=== PATIENT | male | born 1965 | race Caucasian/White ===

== ENCOUNTER 2019-06-09 20:05 | Inpatient (IN) ==
[2019-06-09] MEDS ORDERED: ATIVAN IV ONE ×3 (20:09→21:02)
[2019-06-09] MEDS ORDERED: ATIVAN ONE (20:15)
[2019-06-09] MEDS ORDERED: KEPPRA 1,500 MG in NS 100 ML IV ONE (20:26)
--- NOTE | 2019-06-09 20:35 | Diag Imaging Result Doc PS360 ---
EXAM: CT HEAD W/O CONTRAST INDICATION: seizure TECHNIQUE: This exam was performed using automated exposure control, adjustment of mA or kV according to patient size, and/or use of iterative reconstruction technique. COMPARISON: 11/13/2014 FINDINGS: There is stable ventriculomegaly, more prominent on the left. There is no evidence of periventricular subependymal edema to indicate acute hydrocephalus. There is no definite acute infarct given the limited sensitivity of CT versus MRI. There is no discrete intracranial mass, mass effect, or intracranial hemorrhage. There is a small right maxillary sinus mucus retention cyst. Surrounding soft tissues and bony structures are essentially unremarkable, otherwise. IMPRESSION: Stable chronic ventriculomegaly. No evidence of acute intracranial pathology by CT. Electronically signed by Gautam Souza 06/09/2019 8:32 PM
--- NOTE | 2019-06-09 20:36 | Diag Imaging Result Doc PS360 ---
EXAM: CHEST-PORTABLE INDICATION: sz TECHNIQUE: One view COMPARISON: 05/11/2012 FINDINGS: Inspiration is suboptimal. There are linear opacities at the mid and lower lung zones bilaterally suggesting atelectasis. Superimposed mild interstitial edema is also possible. There is no discrete pleural fluid collection or pneumothorax. The cardiomediastinal silhouette and central vasculature are grossly unremarkable. IMPRESSION: Low lung volumes with bilateral subsegmental atelectasis and possible superimposed mild interstitial edema. Electronically signed by Gautam Souza 06/09/2019 8:34 PM
[2019-06-09] MEDS ORDERED: NS 1,000 ML IV ONE (20:48)
[2019-06-09] MEDS ORDERED: DEPACON 500 MG in NS 50 ML IV ONE (21:02)
[2019-06-09] MEDS ORDERED: LASIX IV ONE (21:29)
[2019-06-09 21:52] LABS: ALLEN TEST YES; BLOOD TYPE ARTERIAL; HCO3-(ACT) 26.4 mmoll (20.0-26.0); METHB 1.1 % (0.0-1.5); O2(CT) 17.6 mL/dL (15.0-23.0); O2HB 93.1 % (95.0-99.0); PO2(98.6) 75 mmHg (60-100); SAMPLE BLOOD; SAO2 95.5 % (95.0-100.0); THB 13.4 g/dL (11.5-17.4)
[2019-06-09 21:56] LABS: MODALITY NRB
[2019-06-09 21:57] LABS: PCO2(98.6) 61 mmHg (35-45)
[2019-06-09] MEDS ORDERED: DUONEB (A & A) INH ONE (22:03)
[2019-06-09 23:24] LABS: URINE SOURCE CATH
[2019-06-09 23:26] LABS: BILIRUBIN URINE NEGATIVE (NEGATIVE); BLOOD URINE NEGATIVE (NEGATIVE); COLOR YELLOW; GLUCOSE URINE NEGATIVE (NEGATIVE); KETONE URINE 10 mg/dL (NEGATIVE); LEUKOCYTES URINE NEGATIVE (NEGATIVE); NITRITE URINE NEGATIVE (NEGATIVE); PH URINE 5.5; PROTEIN URINE 30 mg/dL (NEGATIVE); SP GRAVITY URINE 1.031; TURBIDITY URINE CLEAR (CLEAR); UROBILINOGEN URINE NORMAL (NORMAL)
[2019-06-09 23:27] LABS: UR EPITHELIAL CELLS <10 /HPF (<10); URINE BACTERIA NEGATIVE /HPF; URINE RBC <10 /HPF (<10); URINE WBC <10 /HPF (<10)
[2019-06-09 23:34] LABS: BASO# 0.03 X1000 (0.0-0.2); BASO% 0.3 % (0.0-0.8); EOS# 0.23 X1000 (0.0-0.7); EOS% 2.2 % (0.0-10.0); HEMATOCRIT 45.5 % (42.0-52.0); HEMOGLOBIN 14.4 g/dL (14.0-18.0); IMM GRAN# 0.02 X1000 (0.0-0.04); IMM GRAN% 0.2 % (0.0-0.5); LYMPH# 5.23 X1000 (1.2-3.4); LYMPH% 49.2 % (20.5-51.1); MCH 28.3 PG (27-31); MCHC 31.6 g/dL (33-37); MCV 89.4 FL (81-99); MONO# 0.94 X1000 (0.11-0.59); MONO% 8.9 % (1.7-9.3); MPV 11.1 FL (7.4-10.4); NEUT# 4.17 X1000 (1.4-6.5); NEUT% 39.2 % (42.2-75.2); PLT 236 X1000 (130-400); RBC 5.09 XMIL (4.7-6.1); RDW 15.2 % (11.5-14.5); WBC 10.62 X1000 (4.8-10.8)
[2019-06-09 23:45] LABS: ALB/GLOB RATIO 1.7; ALBUMIN 4.4 g/dL (3.5-5.0); CALCIUM 9.2 mg/dL (8.8-10.2); CREATININE 1.3 mg/dL (0.7-1.2); MAGNESIUM 2.2 mg/dL (1.5-2.7); POTASSIUM 3.8 mmol/L (3.5-5.1); TOTAL BILIRUBIN 0.25 mg/dL (0.20-1.00)
--- NOTE | 2019-06-09 23:52 | PROVIDER DOCUMENTATION ---
This chart was entered by Denae Mcneill Scribe, acting as scribe for Ramírez Nathan MD. HPI-Neurological Disorder - General Stated Complaint: seizure Time Seen by Provider: 06/09/19 20:07 Source: EMS, prison records Allergies/Adverse Reactions: Patient Allergies Allergy/AdvReac Type Severity Reaction Status Date / Time venom-honey bee AdvReac SWELLING Verified 06/09/19 20:53 [bee venom (honey bee)] ziprasidone HCl * AdvReac Unknown Verified 06/09/19 20:53 [From Geodon] ziprasidone mesylate * AdvReac Unknown Verified 06/09/19 20:53 [From Geodon] Home Medications: Home Medication List Medication Instructions Recorded Confirmed Last Taken Type Acetaminophen 325 mg PO Q4H PRN 03/04/14 03/05/14 Unknown History Tamsulosin [Flomax] 0.4 mg PO DAILY 03/04/14 02/07/16 02/07/16 09:00 History Cholecalciferol (Vitamin D3) 1,000 unit PO QAM 03/05/14 02/07/16 02/07/16 09:00 History [Vitamin D3] Cyanocobalamin (Vitamin B-12) 500 mcg PO QAM 03/05/14 02/07/16 02/07/16 09:00 History [B-12] Divalproex [Depakote] 750 mg PO QHS 03/05/14 02/07/16 03/03/14 21:00 History 750mg. Docusate Sodium [Colace] 200 mg PO DAILY 03/05/14 02/07/16 02/07/16 09:00 History Amantadine [Symmetrel] 100 mg PO BID #0 capsule 03/10/14 02/07/16 02/07/16 09:00 Rx Clonazepam [Klonopin] 1 mg PO TID #0 tablet 03/10/14 02/07/16 02/07/16 13:00 Rx Divalproex E.r. [Depakote ER] 1,000 mg PO QHS #0 tablet 03/10/14 02/07/16 Unknown Rx Donepezil [Aricept] 10 mg PO QHS #0 tablet 03/10/14 02/07/16 Unknown Rx Lurasidone [Latuda] 160 mg PO QAM #0 tablet 03/10/14 02/07/16 02/07/16 08:00 Rx Calcium Citrate/Vitamin D2 1 each PO DAILY 02/07/16 02/07/16 02/07/16 09:00 History [Stephane-Citrate Plus Vitamin D Tab] Guaifenesin/Pseudoephedrne HCl 1 tab PO BID 02/07/16 02/07/16 02/07/16 09:00 History [Mucinex D ER Tablet] Kinards-3 Fatty Acids/Fish Oil [Fish 1 each PO DAILY 02/07/16 02/07/16 02/07/16 09:00 History Oil 1,000 mg Capsule] - History of Present Illness-Neuro Nature of Presenting Problem: 54 y/o male with history of seizures presents via EMS from [facility] with prolonged postictal state. EMS states the patient has had four prolonged seizures today with return to normal mental status after the previous three and prolonged postictal state after the fourth with confusion. EMS states per prison staff the pat's seizures are normally well controlled with medication and he is up and about and able to do for himself. Records show the patient is DNR. 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) Timing: reports: still present Context: reports: seizure activity (X 4 today), other (prolonged postictal state) Character of Altered Mental Status: reports: confused Any recent trauma/injury?: reports: none Cognitive Baseline: alert, oriented x3 Gait Baseline: walks without assistance - Seizure First time to have a seizure?: No Witnessed seizure?: Yes (by prison staff ) How many seizure episodes?: 4 Episode Frequency: chronic episodes Status Epilepticus: Yes Post-ictal Symptoms: reports: confusion Seizure related injury: none Review of Systems - Adult - REVIEW OF SYSTEMS - ADULT ROS:: unobtainable per condition Constitutional: reports: no symptoms reported (per [facility] notes) Past History - Adult - PAST MEDICAL HISTORY-ADULT Review of Records: reports: Old Records Reviewed, Nursing Assessment Review, Med ications Reviewed Cardiovascular: reports: HTN Neurological: reports: dementia Psychiatric: reports: anxiety, depression, schizophrenia, other (mood swings) Endocrine/Immune: reports: Diabetes - PRIOR SURGERIES/PROCEDURES Surgical/Procedure History: reports: other (teeth extractions) - IMMUNIZATION STATUS Childhood Immunizations: See Nurse Assessment Flu Vaccine: See Nurse Assessment - SOCIAL HISTORY Smoking: other (former smoker) Living Situation: care facility ([facility]) Physical Exam- Neurological - Physical Exam-Neuro Exam Limited by: General clonic seizure noted on initial exam Initial Vital Signs Reviewed: Yes General Appearance: obtunded Eye Exam: bilateral eye: normal inspection, EOMI, other (2-3 mm. sluggish ) HENMT: moist mucous membranes, normal ENT inspection, TMs normal, other (enalrged cranial vault) Head Injury: no evidence of injury. negative: active bleeding, lacerations, raccoon eyes Neck: supple, normal inspection Respiratory: rhonchi (bilateral bases), increased rate (mild), other (snoring respirations) Cardiovascular: regular rate, rhythm. negative: tachycardia Abdominal Exam: non tender, soft, no pulsatile mass Extremity: normal capillary refill, pedal edema, other (2+ pitting edema bilateral lower extremities) asset recovery specialist Exam: negative: abnormal eye position, abnormal gag reflex, abnormal pupil position Coordination/Gait: other (unable to assess) Motor/Sensory: negative Babinski's sign Neurologic: other (unable to assess) Integumentary: normal turgor, pallor. negative: diaphoresis Psych/Mental Status: other (unable to assess) - Glascow Coma Scale Best Eye Response: (1) no response Best Verbal Response: (1) no verbal response Best Motor Response: (3) flexion to pain Progress - PLAN OF CARE/RESULTS Progress/Plan/Lab Results: Vital Signs - 8 hr 06/09/19 20:18 06/09/19 22:07 Temperature 97.4 F L Pulse Rate 81 101 H Respiratory Rate 20 22 Blood Pressure 178/96 O2 Sat by Pulse Oximetry 94 L 96 Laboratory Results - last 24 hr 06/09/19 06/09/19 06/09/19 20:13 20:13 20:13 WBC RBC Hgb Hct MCV MCH MCHC RDW Std Deviation Plt Count MPV Immature Gran % (Auto) Neut % (Auto) Lymph % (Auto) Powell % (Auto) Eos % (Auto) Baso % (Auto) Immature Gran # (Auto) Neut # (Auto) Lymph # (Auto) Powell # (Auto) Eos # (Auto) Baso # (Auto) Specimen Type Sample Site pH pCO2 pO2 HCO3 Base Excess Oxyhemoglobin ABG O2 Sat (Calculated) ABG O2 Saturation ABG Carboxyhemoglobin ABG Methemoglobin Lew Test A-a O2 Difference Total Hemoglobin Lactate Liter Flow Blood Gas Modality FiO2 % Sodium Potassium Chloride Carbon Dioxide Anion Gap BUN Creatinine Estimated GFR/1.73 m2 BUN/Creatinine Ratio Glucose POC Glucose Calculated Osmolality Calcium Magnesium Total Bilirubin AST ALT Alkaline Phosphatase Troponin T High Sens 10 Total Protein Albumin Globulin Albumin/Globulin Ratio TSH 3.24 Urine Source Urine Color Urine Turbidity Urine pH Ur Specific Ambrose Urine Protein Ur Glucose (Stick) Ur Ketones (Stick) Urine Blood Urine Nitrite Urine Bilirubin Urobilinogen Dipstick Urine Leukocytes Urine WBC (Auto) Urine RBC (Auto) U Epithel Cells (Auto) Urine Bacteria (Auto) Valproic Acid 39.80 L 06/09/19 06/09/19 06/09/19 20:13 20:13 20:48 WBC 10.62 RBC 5.09 Hgb 14.4 Hct 45.5 MCV 89.4 MCH 28.3 MCHC 31.6 L RDW Std Deviation 15.2 H Plt Count 236 MPV 11.1 H Immature Gran % (Auto) 0.2 Neut % (Auto) 39.2 L Lymph % (Auto) 49.2 Powell % (Auto) 8.9 Eos % (Auto) 2.2 Baso % (Auto) 0.3 Immature Gran # (Auto) 0.02 Neut # (Auto) 4.17 Lymph # (Auto) 5.23 H Powell # (Auto) 0.94 H Eos # (Auto) 0.23 Baso # (Auto) 0.03 Specimen Type Sample Site pH pCO2 pO2 HCO3 Base Excess Oxyhemoglobin ABG O2 Sat (Calculated) ABG O2 Saturation ABG Carboxyhemoglobin ABG Methemoglobin Lew Test A-a O2 Difference Total Hemoglobin Lactate Liter Flow Blood Gas Modality FiO2 % Sodium 148 H Potassium 3.8 Chloride 101 Carbon Dioxide 23 L Anion Gap 24 BUN 19 Creatinine 1.3 H Estimated GFR/1.73 m2 58 BUN/Creatinine Ratio 15 Glucose 157 H POC Glucose 145 H D Calculated Osmolality 300 Calcium 9.2 Magnesium 2.2 Total Bilirubin 0.25 AST 21 ALT 24 Alkaline Phosphatase 89 Troponin T High Sens Total Protein 7.0 Albumin 4.4 Globulin 2.6 Albumin/Globulin Ratio 1.7 TSH Urine Source Urine Color Urine Turbidity Urine pH Ur Specific Ambrose Urine Protein Ur Glucose (Stick) Ur Ketones (Stick) Urine Blood Urine Nitrite Urine Bilirubin Urobilinogen Dipstick Urine Leukocytes Urine WBC (Auto) Urine RBC (Auto) U Epithel Cells (Auto) Urine Bacteria (Auto) Valproic Acid 06/09/19 06/09/19 21:29 22:45 WBC RBC Hgb Hct MCV MCH MCHC RDW Std Deviation Plt Count MPV Immature Gran % (Auto) Neut % (Auto) Lymph % (Auto) Powell % (Auto) Eos % (Auto) Baso % (Auto) Immature Gran # (Auto) Neut # (Auto) Lymph # (Auto) Powell # (Auto) Eos # (Auto) Baso # (Auto) Specimen Type ARTERIAL Sample Site R RADIAL pH 7.30 L pCO2 61 H* pO2 75 HCO3 26.4 H Base Excess 2.0 Oxyhemoglobin 93.1 L ABG O2 Sat (Calculated) 17.6 ABG O2 Saturation 95.5 ABG Carboxyhemoglobin 1.40 ABG Methemoglobin 1.1 Lew Test YES A-a O2 Difference 562.0 Total Hemoglobin 13.4 Lactate 2.60 H Liter Flow 15.0 Blood Gas Modality NRB FiO2 % 100.0 Sodium Potassium Chloride Carbon Dioxide Anion Gap BUN Creatinine Estimated GFR/1.73 m2 BUN/Creatinine Ratio Glucose POC Glucose Calculated Osmolality Calcium Magnesium Total Bilirubin AST ALT Alkaline Phosphatase Troponin T High Sens Total Protein Albumin Globulin Albumin/Globulin Ratio TSH Urine Source CATH Urine Color YELLOW Urine Turbidity CLEAR Urine pH 5.5 Ur Specific Ambrose 1.031 Urine Protein 30 A Ur Glucose (Stick) NEGATIVE Ur Ketones (Stick) 10 A Urine Blood NEGATIVE Urine Nitrite NEGATIVE Urine Bilirubin NEGATIVE Urobilinogen Dipstick NORMAL Urine Leukocytes NEGATIVE Urine WBC (Auto) <10 Urine RBC (Auto) <10 U Epithel Cells (Auto) <10 Urine Bacteria (Auto) NEGATIVE Valproic Acid Orders Category Date Time Status Finger Stick Blood Sugar (ED) DIRECTED Care 06/09/19 20:09 Active Ferraro Cath Insertion ORDERED Care 06/09/19 21:29 Active Resuscitation Status Routine Care 06/09/19 23:38 Ordered Saline Loc NOW Care 06/09/19 20:09 Active CHEST-PORTABLE [RAD] Stat Exams 06/09/19 20:[address] HEAD W/O CONTRAST [CT] Stat Exams 06/09/19 20:10 Completed ABG [RESP] Routine Lab 06/09/19 21:29 Completed BLOOD CULTURE [BLDCUL] Stat Lab 06/09/19 23:42 Ordered CBC WITH ELECTRONIC DIFF [HEME] Stat Lab 06/09/19 20:13 Completed COMPREHENSIVE METABOLIC PANEL [CHEM] Stat Lab 06/09/19 20:13 Completed MAGNESIUM [CHEM] Stat Lab 06/09/19 20:13 Completed PRO B-NATRIURETIC PEPTIDE Stat Lab 06/09/19 20:13 Received TROPONIN T HIGH SENSITIVITY Stat Lab 06/09/19 20:13 Completed TSH Stat Lab 06/09/19 20:13 Completed URINALYSIS W/POSS RFLX CULT [URINALYSIS] Stat Lab 06/09/19 22:45 Completed URINE DRUG SCREEN Stat Lab 06/09/19 22:45 Received VALPROIC ACID [TDM] Stat Lab 06/09/19 20:13 Completed 0.9% Sodium Chloride Inj [Ns] 1,000 ml Med 06/09/19 20:48 Discontinued IV 999 mls/hr Albuterol 2.5MG/Ipratrop 0.5MG [Duoneb (A & A)] Med 06/09/19 22:03 Discontinued 3 ml INH NOW ONE Furosemide [Lasix] Med 06/09/19 21:29 Discontinued 80 mg IV NOW ONE Levetiracetam [Keppra] 1,500 mg Med 06/09/19 20:26 Discontinued 0.9% Sodium Chloride Inj [Ns] 100 ml IV NOW Lorazepam [Ativan] Med 06/09/19 20:15 Discontinued 2 mg .ROUTE .STK-MED ONE Lorazepam [Ativan] Med 06/09/19 20:09 Discontinued 2 mg IV NOW ONE Lorazepam [Ativan] Med 06/09/19 20:47 Discontinued 2 mg IV NOW ONE Lorazepam [Ativan] Med 06/09/19 21:02 Discontinued 2 mg IV NOW ONE Valproate Sodium [Depacon] 500 mg Med 06/09/19 21:02 Discontinued 0.9% Sodium Chloride Inj [Ns] 50 ml IV NOW Aerosol Treatments Routine Oth 06/09/19 22:03 Completed Aerosol Treatments Stat Oth 06/09/19 22:03 Completed EKG [EKG] Stat Ther 06/09/19 20:09 Ordered 1: Nursing staff reports the patient also seized while in the radiology department. 2101: The patient is noted to be having seizure, will give Ativan again. Depakote level also noted to be low, will give Depakote. 5: Physician at bedside. 2248: Physician at bedside. Result Diagrams: 06/09/19 20:13 06/09/19 20:13 - REASSESSMENT Reassessment #1 Time Reassessed: 20:46 Status: unchanged (having another generalized tonic seizure after 2mg ativan, will give additional 2mg ativan) Reassessment #2 Time Reassessed: 23:46 Status: improving (Patient currently post-ictal. vitals stable. We are decreasing FiO2, and cannot intubate as patient is DNR, cannot BiPap as he is still pst-ictal, not awake enough for bipap. Will admit.) - XRAY 1 XRAY Study: Chest (EXAM: CHEST-PORTABLE INDICATION: sz TECHNIQUE: One view COMPARISON: 05/11/2012 FINDINGS: Inspiration is suboptimal. There are linear opacities at the mid and lower lung zones bilaterally suggesting atelectasis. Superimposed mild interstitial edema is also possible. There is no discrete pleural fluid collection or pneumothorax. The cardiomediastinal silhouette and central vasculature are grossly unremarkable. IMPRESSION: Low lung volumes with bilateral subsegmental atelectasis and possible superimposed mild interstitial edema. Electronically signed by Gautam Souza 06/09/2019 8:34 PM) Impression: Abnormal, See EMR Report - CT/MRI 1 CT Study: Head (EXAM: CT HEAD W/O CONTRAST INDICATION: seizure TECHNIQUE: This exam was performed using automated exposure control, adjustment of mA or kV according to patient size, and/or use of iterative reconstruction technique. COMPARISON: 11/13/2014 FINDINGS: There is stable ventriculomegaly, more prominent on the left. There is no evidence of periventricular subependymal edema to indicate acute hydrocephalus. There is no definite acute infarct given the limited sensitivity of CT versus MRI. There is no discrete intracranial mass, mass effect, or intracranial hemorrhage. There is a small right maxillary sinus mucus retention cyst. Surrounding soft tissues and bony structures are essentially unremarkable, otherwise. IMPRESSION: Stable chronic ventriculomegaly. No evidence of acute intracranial pathology by CT. 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 Attestation - Physician/ ELMIRA Attestation Patient care was provided by Advanced Practice Provider:: No The physician spent face to face time with patient:: Yes Advanced Practice Provider documentation review:: Supervising physician onsite and consulted in the evaluation and care of this patient. The physician did have a face to face encounter with the patient. This chart was documented by the indicated scribe, (Denae Mcneill, Edna) and accurately reflects the services I performed and decisions made by me, Ramírez Nathan MD, as attested by the provider's signature.
[2019-06-09 23:57] LABS: UR AMPHETAMINES QUAL NONE DETECTED (NONE DETECT); UR BARBITUATES QUAL NONE DETECTED (NONE DETECT); UR BENZODIAZEPIN QUAL PRESUMPTIVE POSITIVE (NONE DETECT); UR CANNABINOIDS QUAL NONE DETECTED (NONE DETECT); UR COCAINE QUAL NONE DETECTED (NONE DETECT); UR METHADONE QUAL NONE DETECTED (NONE DETECT); UR OPIATES QUAL NONE DETECTED (NONE DETECT); UR OXYCODONE QUAL NONE DETECTED (NONE DETECT); UR PCP QUAL NONE DETECTED (NONE DETECT)
--- NOTE | 2019-06-10 00:06 | ED EKG INTERP ---
EKG Interpretation - EKG Time of EKG reading by physician:: 00:05 EKG Read and Signed by:: Ramírez Nathan EKG Interpretation (*Must complete 3 of following elements*): Abnormal Rate: 110 Rhythm: sinus tach [place]: normal QRS: normal AR Interval: normal ST Wave: normal Attestation - Physician/ ELMIRA Attestation Patient care was provided by Advanced Practice Provider:: No The physician spent face to face time with patient:: Yes Advanced Practice Provider documentation review:: Supervising physician onsite and consulted in the evaluation and care of this patient. The physician did have a face to face encounter with the patient.
--- NOTE | 2019-06-10 00:24 | EKG Report ---
Test Performed on : 06/09/2019 11:57:32 PM Test Reason : sz Blood Pressure : / mmHG Vent. Rate : 110 BPM Atrial Rate : 110 BPM P-R Int : 162 ms QRS Dur : 086 ms QT Int : 352 ms P-R-T Axes : 050 058 000 degrees QTc Int : 476 ms Sinus tachycardia. Otherwise normal ECG When compared with ECG of 08-FEB-2016 00:53, Vent. rate has increased BY 49 BPM Unconfirmed Result
--- NOTE | 2019-06-10 02:29 | HISTORY AND PHYSICAL ---
PRIMARY CARE PROVIDER: Unknown. CHIEF COMPLAINT: Seizures. HISTORY OF PRESENTING ILLNESS: A 54-year-old male with a history of seizures, Parkinson's, depression, hypertension, diabetes mellitus type 2 and intellectual disability, who was brought from [facility] due to patient having persistent seizures. The patient apparently had a seizure while he was at the correction. When he got to the ER, he continued to have seizures several times. He was given Ativan, Depakote and Keppra and then his seizures subsided. He is basically postictal at time of my examination and not much history could be obtained from him and most of the history is obtained from previous records and ER charting. PAST MEDICAL HISTORY: Includes Parkinson's, depression, hypertension, diabetes mellitus type 2, chronic back pain, dementia, schizophrenia, intellectual disability. PAST SURGICAL HISTORY: Unknown. ALLERGIES: Honey bee, ziprasidone. CURRENT MEDICATIONS: Include acetaminophen 325 mg p.o. q.4 hours, amantadine 100 mg p.o. b.i.d., clonazepam 1 mg p.o. t.i.d., Depakote 750 mg p.o. at bedtime, Depakote ER 1000 mg p.o. at bedtime, Aricept 10 mg p.o. at bedtime, Latuda 160 mg p.o. q.a.m., Flomax 0.4 mg p.o. daily. SOCIAL HISTORY: No history of smoking, alcohol or illicit drug use. FAMILY HISTORY: No history of coronary artery disease. REVIEW OF SYSTEMS: Limited due to patient being postictal. PHYSICAL EXAMINATION: GENERAL: The patient is resting comfortably now but is postictal. VITAL SIGNS: Temperature 97.4 degrees, pulse 81, respirations 20, blood pressure 178/96. HEENT: Atraumatic, normocephalic. PERRLA. NECK: No masses. CHEST: Rhonchi. CARDIOVASCULAR: Regular rate and rhythm. ABDOMEN: Soft. Positive bowel sounds. EXTREMITIES: Trace edema. NEUROLOGIC: He is awake and arousable. GENITOURINARY: No bladder distention. SKIN: Warm. LABORATORIES AND STUDIES: WBC 10.62, hemoglobin 14.4, hematocrit 45.5, platelets 236,000. Sodium 148, potassium 3.8, chloride 101, CO2 is 23, BUN is 19, creatinine is 1.3, glucose 157. Head CT shows stable chronic ventriculomegaly. No evidence of any acute intracranial pathology. Chest x- ray shows low lung volumes and with bilateral subsegmental atelectasis. ASSESSMENT: This is a 54-year-old male with a history of seizures, Parkinson's, depression, hypertension, diabetes mellitus type 2, who was brought from [facility] due to patient having seizures. He continued to have seizures while he is in the ED multiple times. He has required Ativan, Keppra and Depakote to stop his seizures. He will require admission for further management. 1. Status epilepticus. 2. Parkinson's. 3. Hypertension. 4. Diabetes mellitus type 2. PLAN: 1. We will admit patient to PVC. 2. We will continue with Ativan, Depakote, and Keppra. 3. Consult Neurology. 4. Put patient on seizure precautions. 5. We will restart home medications. 6. We will monitor blood pressure closely. 7. Monitor blood glucose and put patient on sliding scale insulin regimen. 8. We will put patient on DVT prophylaxis with SCD. 9. We will continue to follow and reassess, make further recommendation based on patient's clinical course. cc: Anupam Melo MD
[2019-06-10] MEDS ORDERED: ATIVAN IV PRN (03:47)
[2019-06-10] MEDS ORDERED: TYLENOL PO PRN ×2 (03:47→10:39)
[2019-06-10] MEDS ORDERED: ZOFRAN IV PRN (03:47)
[2019-06-10] MEDS: KEPPRA 500 MG/NS 500 MG/100 ML IVPB IV SCH ×2 (04:04→15:57)
[2019-06-10] MEDS: HUMULIN R SUBQ SCH ×4 (06:38→21:39)
[2019-06-10] MEDS ORDERED: MELATONIN PO PRN (10:39)
--- NOTE | 2019-06-10 15:00 | PROGRESS NOTE ---
DATE: 06/10/2019 SUBJECTIVE: The patient has no major complaints. I am not sure exactly what baseline is for him. OBJECTIVE: Blood pressure 137/87, heart rate 103, respiratory rate 17, temperature 97.7 degrees, satting 93% on room air.Cardiovascular: Regular rate and rhythm. Pulmonary: Bilateral breath sounds. Clear to auscultation. GI: Soft, nontender, nondistended. Bowel sounds are positive. LABS: White count 10. I do not have any new labs today, but we are consistently checking lactates which may be a bit of a futile exercise in the setting of a patient with known seizure disorder, who is actively having seizures. PROBLEM LIST: 1. Seizure. He seems to be doing okay on Ativan p.r.n., Depakote, Keppra. Neurology has seen him, but I do not see any changes in his medications, but I do not think he was on Keppra previously. In fact I guess he is on Depakote; I am not entirely sure that is not for his psychiatric issues. I do not really know; it does not really look like he is on great seizure medicines. He is on Keppra, and we will continue that for now. 2. Parkinsonism with dementia. We will continue his regular medications. I think he is probably pretty close to his baseline. 3. Type 2 diabetes. We will follow blood sugars closely. cc: Hardik Holden MD
--- NOTE | 2019-06-10 15:04 | NEUROLOGY CONSULTATION ---
DATE: 06/10/2019 Mr. Palacios is 54 years old and there is report of recent series of seizures. Mr. Palacios has an intellectual impairment but is able to provide some history. He reports onset of seizure several years ago, taking medicine for seizures for several years, no definite adverse effects with recent seizure medication regimen. He is not able to tell me the names and doses of his medicines. He reports no seizures in "a long time" prior to recent series of episodes. The hospital chart this admission shows home medicines include clonazepam 1 mg t.i.d., divalproex ER 500 mg 3 at bedtime. His urine drug screen was positive for benzodiazepine on admission. Valproic acid level was 39.8. Home list also includes temazepam 30 mg at bedtime, trazodone 100 mg at bedtime, risperidone 2 mg a.m./4 mg p.m., donepezil 10 mg at bedtime, amantadine 100 mg b.i.d. This admission, he has received levetiracetam 1500 mg single dose and then 500 mg IV q.12 hours. He received 1 dose of valproic acid 500 mg. He had lorazepam 2 mg, 2 doses. Chart indicates past diagnoses are seizure disorder, Parkinson disease, depression, hypertension, diabetes mellitus type 2. I saw Mr. Palacios in the office in 2011 and there was not seizure history then. 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 On exam, Mr. Palacios is awake, alert, oriented, appropriate. Speech is not significantly dysarthric and is not parkinsonian. There is resting tremor in the left arm. I do not find cogwheeling rigidity. He did well on [id number] testing bilaterally. I do not see definite tremor with action. I do not find any other movement disorder. He has good power in the arms and legs. I did not test his gait. Visual sethi are full. Facial motility is a little bit diminished bilaterally, but symmetric. Tongue is midline. Palate is midline. Visual sethi are full to confrontational finger counting. Head and neck are unremarkable. There is no meningismus. IMPRESSION: 1. Apparent history of seizures, onset sometime after 2011, treated with some success He appears to be tolerating current management. I do not know if he has had levetiracetam prior to this admission. Sometimes, levetiracetam is associated with aggravation of personality problems in this particular population. Creatinine is 1.3 so he likely has adequate levetiracetam serum levels with relatively low maintenance dose provided. If he tolerates levetiracetam, we might continue that. Admission lab did not show evidence of hepatic toxicity or bone marrow toxicity and divalproex seems to have been a good drug for him, so that could be continued. I do not know the reason for recent series of seizures. Typically, if his history of being seizure-free is correct, we would see breakthrough seizures statistically most likely associated with missed seizure medication dose. He has not been febrile and there is not obvious metabolic problem to account for seizure. Home medication list includes both clonazepam and temazepam. Drug screen was positive for benzodiazepine and I believe his medications are closely supervised, so I do not suspect benzodiazepine withdrawal is responsible for recent seizures. 2. Parkinsonism treated with ropinirole and amantadine. I do not know if he has had previous trial with levodopa or not. RECOMMENDATIONS: If he continues stable, I would consider discharging him on current doses and return him to follow up with his treating physician. If he or family would like to see me as an outpatient, I will be glad to provide neurology followup for the seizure management. Regarding the parkinsonism, I do not think that is an issue today. His home medicine list includes amantadine and risperidone. Those can be continued. Thanks for asking Neurology to see Mr. Palacios. cc: MD MARICRUZ Loomis III
[2019-06-10] MEDS: INDERAL PO SCH ×2 (15:57→21:38)
[2019-06-10] MEDS: PROTONIX PO SCH ×2 (15:57→21:37)
[2019-06-10] MEDS: RISPERDAL PO SCH (21:36)
[2019-06-10] MEDS: DEPAKOTE ER PO SCH (21:37)
[2019-06-10] MEDS: RESTORIL PO SCH (21:37)
[2019-06-10] MEDS: PLETAL PO SCH (21:37)
[2019-06-10] MEDS: DESYREL PO SCH (21:38)
[2019-06-10] MEDS: SYMMETREL PO SCH (21:38)
[2019-06-10] MEDS: KLONOPIN PO SCH (21:39)
[2019-06-10] MEDS: ARICEPT PO SCH (21:39)
[2019-06-11] MEDS: KEPPRA 500 MG/NS 500 MG/100 ML IVPB IV SCH ×2 (04:45→14:47)
[2019-06-11 05:53] LABS: BASO# 0.04 X1000 (0.0-0.2); BASO% 0.5 % (0.0-0.8); EOS# 0.26 X1000 (0.0-0.7); HEMATOCRIT 43.3 % (42.0-52.0); HEMOGLOBIN 13.6 g/dL (14.0-18.0); IMM GRAN# 0.02 X1000 (0.0-0.04); IMM GRAN% 0.2 % (0.0-0.5); LYMPH# 3.91 X1000 (1.2-3.4); LYMPH% 44.8 % (20.5-51.1); MCH 27.8 PG (27-31); MCHC 31.4 g/dL (33-37); MCV 88.5 FL (81-99); MONO% 6.9 % (1.7-9.3); MPV 10.2 FL (7.4-10.4); NEUT# 3.89 X1000 (1.4-6.5); NEUT% 44.6 % (42.2-75.2); PLT 193 X1000 (130-400); RBC 4.89 XMIL (4.7-6.1); RDW 15.2 % (11.5-14.5); WBC 8.72 X1000 (4.8-10.8)
[2019-06-11 06:14] LABS: AGAP 10; BUN 17 mg/dL (8-22); CALCIUM 8.5 mg/dL (8.8-10.2); CHLORIDE 104 mmol/L (98-107); COSMO 285; CREATININE 0.9 mg/dL (0.7-1.2); ESTIMATED GFR > 60; GLUCOSE 110 mg/dL (70-104); POTASSIUM 3.4 mmol/L (3.5-5.1); SODIUM 142 mmol/L (136-145); TCO2 28 mmol/L (25-35)
[2019-06-11] MEDS: HUMULIN R SUBQ SCH ×4 (06:55→20:26)
[2019-06-11] MEDS: PLETAL PO SCH ×2 (09:23→20:25)
[2019-06-11] MEDS: INDERAL PO SCH ×3 (09:23→20:25)
[2019-06-11] MEDS: RISPERDAL PO SCH ×2 (09:23→20:25)
[2019-06-11] MEDS: VITAMIN B-12 PO SCH (09:24)
[2019-06-11] MEDS: MIRALAX PO SCH (09:24)
[2019-06-11] MEDS: PROTONIX PO SCH ×3 (09:24→20:25)
[2019-06-11] MEDS: LASIX PO SCH (09:24)
[2019-06-11] MEDS: FLOMAX PO SCH (09:24)
[2019-06-11] MEDS: KLONOPIN PO SCH ×2 (09:24→20:25)
[2019-06-11] MEDS: SYMMETREL PO SCH ×2 (09:24→20:25)
--- NOTE | 2019-06-11 12:53 | NEUROLOGY PROGRESS NOTE ---
DATE: 06/11/2019 LOCATION: Room 217. SUBJECTIVE: Mr. Palacios has not had any further seizure. He appears to be tolerating current management. He is not able to provide me this morning with history regarding his prior seizure management, prior seizure medications, doses. Here, he has been receiving clonazepam 1 mg b.i.d., divalproex 1500 mg at bedtime (resumed yesterday), levetiracetam 500 mg every 12 hours. He continues donepezil 10 mg at bedtime, amantadine 100 mg b.i.d., risperidone 2 mg a.m./4 mg p.m. On exam, he is sitting up, awake, alert, much brighter than yesterday, very attentive to my questions, and much more spontaneous with his communication. I did not see resting tremor today. I do not have any new thoughts or new suggestions. I would continue current management until he can follow up with his treating physician. Thank you for asking Neurology to see Mr. Palacios. cc: Bassam Mar III, MD
--- NOTE | 2019-06-11 16:31 | DISCHARGE SUMMARY ---
ADMISSION DATE: 06/10/2019 DISCHARGE DATE: 06/11/2019 DISCHARGE DIAGNOSES: 1. Chronic seizure disorder. 2. Parkinsonism. 3. Depression. 4. Type 2 diabetes. 5. Possible schizophrenia. CONSULTATIONS: Neurology. HOSPITAL COURSE: Briefly this is a 54-year-old male who has a history of seizures who is on Depakote and Ativan. I do not think he was on Keppra to begin with though, but he was admitted for treatment after having a seizure. Neurology was consulted and they stated that he had been relatively well-controlled. Keppra would be concern possibly because of worsening personality issues. However, the patient seemed to be doing well on Keppra without difficulty. On the he had not had a seizure for over 24 hours. He seemed to be doing okay, was at baseline. DISCHARGE MEDICATIONS: Depakote ER 1500 at bedtime, trazodone 100 at bedtime, Risperdal 4 at bedtime, Tylenol p.r.n., vitamin B12 50 mcg daily, Flomax 0.4 daily, Klonopin 1 b.i.d., Lasix 40 daily, melatonin 10 p.r.n., MiraLAX 17 daily, Pletal 50 b.i.d., propranolol 10 t.i.d., Protonix 40 t.i.d., risperidone 2 daily, Aricept 10 daily, Keppra 500 b.i.d., Symmetrel 100 b.i.d. DISCHARGE CONDITION: Stable. cc: Hardik Holden MD
[2019-06-11] MEDS: DEPAKOTE ER PO SCH (20:24)
[2019-06-11] MEDS: ARICEPT PO SCH (20:25)
[2019-06-11] MEDS: RESTORIL PO SCH (20:25)
[2019-06-11] MEDS: DESYREL PO SCH (20:25)
[2019-06-12] MEDS: HUMULIN R SUBQ SCH (06:32)
[2019-06-12] MEDS ORDERED: KEPPRA PO SCH (09:00)
[2019-06-12] MEDS: FLOMAX PO SCH (09:54)
[2019-06-12] MEDS: PROTONIX PO SCH (09:54)
[2019-06-12] MEDS: INDERAL PO SCH (09:55)
[2019-06-12] MEDS: SYMMETREL PO SCH (09:55)
[2019-06-12] MEDS: LASIX PO SCH (09:55)
[2019-06-12] MEDS: KLONOPIN PO SCH (09:56)
[2019-06-12] MEDS: VITAMIN B-12 PO SCH (09:56)
[2019-06-12] MEDS: RISPERDAL PO SCH (09:56)
[2019-06-12] MEDS: PLETAL PO SCH (09:56)
[2019-06-12] MEDS: MIRALAX PO SCH (09:58)
[2019-06-12 13:00] VITALS: BP 110/83
--- NOTE | 2019-06-12 18:45 | DISCHARGE SUMMARY ---
ADMISSION DATE: 06/10/2019 DISCHARGE DATE: 06/12/2019 ADDENDUM: The patient came in for seizure. He had been well controlled previously. He was put on Keppra in addition to his other medications. He has been seizure-free. Initially, we felt that the patient, I guess it was unclear that he was from a skilled facility, and had to be kept 1 more day to evaluate for discharge to skilled facility. cc: Hardik Holden MD
== END 2019-06-12 15:58 | DRG 100 ==
LOC: SUPCPDRO → ED 20:05 → 2N 06-10 02:50 → SUATTDRO 06-10 02:50
PROVIDERS: ATTEND Internal Medicine